=== PATIENT | male | born 1945 | race Caucasian/White ===

== ENCOUNTER 2017-07-12 12:42 | Inpatient (IN) ==
[2017-07-12] MEDS ORDERED: *HR* Heparin 5,000 UNIT/ML VIAL IVP PRN ×2 (19:30)
[2017-07-12] MEDS ORDERED: Heparin 25,000 UNIT/500 ML D5W 25,000 UNIT/500 ML BAG IVC SCH (19:30)
[2017-07-12] MEDS ORDERED: Ondansetron 4 MG/2 ML VIAL IVP PRN (20:05)
[2017-07-12] MEDS ORDERED: *HR* Morphine 2 MG/ML SYRINGE IVP PRN ×2 (20:05→20:10)
[2017-07-12] MEDS ORDERED: Naloxone 0.4 MG/ML INJ IVP PRN (20:05)
[2017-07-12] MEDS ORDERED: Acetaminophen 325 MG TABLET PO PRN (20:10)
[2017-07-12] MEDS ORDERED: Ipratropium/Albuterol Neb 3 ML IH PRN (20:10)
[2017-07-12] MEDS ORDERED: *HR* Dextrose 50 % in Water (Syg) 50 ML SYRINGE IVP PRN (20:12)
[2017-07-12] MEDS ORDERED: *HR* HYDROcodone/Acet 10/325 mg TABLET PO PRN (20:12)
[2017-07-12] MEDS ORDERED: D5% in Water 1,000 ML IVC PRN (20:12)
[2017-07-12] MEDS ORDERED: Dextrose Gel 15 GM/37.5 ML TUBE PO PRN ×2 (20:12)
--- NOTE | 2017-07-12 20:17 | Internal Med History&Physical ---
Date of Encounter: 07/12/17 Time of Encounter: 20:14 Assessment and Plan (1) NSTEMI (non-ST elevated myocardial infarction) Current visit: No Status: Acute Aspirin, metoprolol, Lipitor, nitroglycerin paste Morphine as needed Telemetry, monitor troponins, echocardiogram Lipid panel Cardiology consult, nothing by mouth after midnight for cardiac catheterization Heparin drip Omeprazole for GI prophylaxis and heparin drip for DVT prophylaxis. The patient will be admitted as inpatient, expected to stay more than 2 midnights. Full code. Time spent on this admission 40 minutes. (2) Accelerated hypertension Current visit: Yes Status: Acute Continue amlodipine, increase dose of losartan to 50 mg daily. 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 transplanted heart: [place] heart Associated angina: with unspecified angina Qualified Code(s): I25.119 - Atherosclerotic heart disease of [place] coronary artery with unspecified angina pectoris Internal Medicine - H&P: HPI Chief complaint: Chest pain Admitted From: Emergency Dept History of present illness: Mr. Cavanaugh is a 72 year old male transferred from [place], with a past medical history of CAD status post stents, diabetes type 2 insulin-dependent, hypertension, hyperlipidemia, started complaining of chest pressure, midsternal about 4 days ago since Sunday. Got worse earlier today at 2 PM and lasted for an hour and a half with no radiation 8 out of 10 in intensity that improved with nitroglycerin. Patient went to the ER and his troponin was 0.8, chest x- ray was unremarkable, hemoglobin 18.5 hematocrit 51.6 INR was 1 aPTT 47.7 glucose 339 sodium 132 chloride 96 calcium 11. Cardiology was consulted by the ER, Dr. Beverly recommended admission and to start heparin drip. The patient's blood pressure has been very elevated at 209/93. Denies any other complaints Past Med Surg Social Fam HX - Past Medical History Medical history: asthma, cancer (Prostate cancer, has seeds implanted), coronary artery disease (Status post stents), diabetes (Insulin-dependent), hyperlipidemia, hypertension, myocardial infarction, other (Abnormal stress test in 2016, depression, chronically elevated troponins, asthma) Psychiatric history: no psych history - Past Surgical History Surgical History: angioplasty/stent (Drug-eluting stent in the mid RCA in October 2015), other (Prostate seeds, echocardiogram from 2016 shows an ejection fraction of 60%) - Social History Smoking Status: Former smoker Smokeless Tobacco Status: No Alcohol use: none Drug use: none - Family History Father Living Status: Hx Family Cardiac Disorders: Yes ([place], HTN) Hx Family Respiratory Disorders: Yes (COPD) Hx Family Cancer: No Hx Family GI Disorders: No Hx Family Endocrine Disorder: No Hx Family Neuromuscular Disorders: No Hx Family Neurologic Disorders: No Hx Family HEENT Disorders: No Hx Family Autoimmune Disorders: No Mother Living Status: Hx Family Cardiac Disorders: Yes (Atherosclerosis) Hx Family Respiratory Disorders: No Hx Family Cancer: No Hx Family GI Disorders: No Hx Family Endocrine Disorder: Yes (DM) Hx Family Neuromuscular Disorders: No Hx Family Neurologic Disorders: No Hx Family HEENT Disorders: No Hx Family Autoimmune Disorders: No - Additional Family History Additional family history: Father with myocardial infarction, hypertension, COPD. Mother with diabetes and atherosclerosis Internal Medicine - H&P: Meds glipiZIDE [Glipizide] 10 mg PO DAILY 10/17/15 [History] Aspirin 81 mg PO DAILY 30 Days tab.chew 10/19/15 [Rx] Atorvastatin [Lipitor] 40 mg PO HS 30 Days tablet 10/19/15 [Rx] Metoprolol [Lopressor] 25 mg PO BID 30 Days tablet 10/19/15 [Rx] Isosorbide MONOnitrate (24 HR) [Imdur] 60 mg PO DAILY 30 Days tab.er.24h [Rx] FLUoxetine HCl [Fluoxetine HCl] 10 mg PO DAILY 07/12/17 [History] Insulin Glargine,Hum.rec.anlog [Toujeo Solostar] 75 units SQ DAILY 07/12/17 [ History] Losartan [Cozaar] 25 mg PO DAILY 07/12/17 [History] Metformin HCl [Fortamet] 850 mg PO BID 07/12/17 [History] Montelukast [Singulair] 10 mg PO DAILY 07/12/17 [History] Damar 10-325 mg 07/12/17 [History] amLODIPine [Norvasc] 5 mg PO BID 07/12/17 [History] 3 Allergy/AdvReac Type Severity Reaction Status Date / Time No Known Allergies Allergy Verified 07/12/17 10:23 All Systems PM: A 10-system review of systems was performed and is negative for pertinent findings except as documented above in the HPI. Review of systems: No chest pain at the moment, other systems out of the 10 reviewed were negative - Constitutional Vitals: Temp Pulse Resp BP 98.1 F 56 17 175/68 07/12/17 17:19 07/12/17 17:19 07/12/17 17:19 07/12/17 18:27 General appearance: Present: A&O X 3, morbidly obese - Head Head exam: Present: atraumatic, normocephalic - Eye Eye exam: Present: PERRL, conjuntiva pink, sclera anicteric Pupils: Present: PERRL - Neck Neck exam general surgery: Present: supple, trachea midline. Absent: lymphadenopathy - Respiratory Respiratory exam: Present: CTAB. Absent: accessory muscle use, rales, rhonchi, wheezes - Cardiovascular Cardiovascular exam: Present: RRR, +S1, +S2. Absent: diastolic murmur, gallop, rubs, systolic murmur - GI/Abdominal GI/Abdominal exam: Present: normal bowel sounds, soft, no peritoneal signs. Absent: distended, tenderness - Extremities Exam Extremities exam: Present: warm, radial pulses palpable and symmetrical. Absent : calf tenderness, cyanotic, pedal edema - Neurological Exam Neurological exam: Present: CN II-XII intact, oriented X3, no focal deficits. Absent: pronater drift, facial droop, speech deficit - Skin Skin exam: Present: dry, intact Internal Med - H&P Results - Labs Labs: EKG shows sinus bradycardia, no other ischemic findings
[2017-07-12 20:44] LABS: INR 1.1; Prothrombin Time 11.3 Seconds (9.4-12.1)
[2017-07-12 20:47] LABS: Activated Partial Thrombo Time 47.9 Seconds (26.0-36.0)
[2017-07-12 21:08] LABS: Hematocrit 46.5 % (37.5-50.1); Hemoglobin 16.3 g/dL (12.9-16.9); Immature Platelets 4.4 % (1.1-6.1); Mean Corpuscular HGB Conc 35.1 g/dL (31.6-35.5); Mean Corpuscular Volume 82.6 fL (83.0-100.0); Mean Platelet Volume 10.5 fL (9.4-12.4); Red Blood Count 5.63 M/mcL (4.19-5.50); Red Cell Distribution Width 12.4 % (11.5-14.5)
[2017-07-12] MEDS: 0.9 % Sodium Chloride 1,000 ML IVC SCH (22:04)
[2017-07-12] MEDS: amLODIPine 5 MG TABLET PO SCH (22:05)
[2017-07-12] MEDS: Nitroglycerin 1 INCH/GM PACKET TP SCH (22:06)
[2017-07-12] MEDS: Insulin LISPRO 300 UNITS/3 ML VIAL SQ SCH ×2 (22:06→22:11)
[2017-07-13 03:07] LABS: Hematocrit 44.9 % (37.5-50.1); Hemoglobin 15.6 g/dL (12.9-16.9); Mean Corpuscular HGB Conc 34.7 g/dL (31.6-35.5); Mean Corpuscular Hemoglobin 29.4 pg (28.0-33.3); Mean Corpuscular Volume 84.6 fL (83.0-100.0); Mean Platelet Volume 10.4 fL (9.4-12.4); Platelet Count 210 K/mcL (140-400); Red Blood Count 5.31 M/mcL (4.19-5.50); Red Cell Distribution Width 12.5 % (11.5-14.5)
[2017-07-13 03:24] LABS: BUN/Creatinine Ratio 15 (6-26); Blood Urea Nitrogen 13 mg/dL (8-23); Calcium 8.9 mg/dL (8.6-10.3); Carbon Dioxide 27 mEq/L (23-29); Chloride 99 mEq/L (98-107); Chol/HDL Ratio 5.1 (0-4.9); Cholesterol 189 mg/dL (< 200); Glucose 314 mg/dL (70-105); HDL Cholesterol 37 mg/dL (40-59); LDL Cholesterol,Calculated 114 mg/dL (0-99); Osmolality,Calculated 288 (280-300); Potassium 3.7 mEq/L (3.5-5.1); Sodium 133 mEq/L (136-145); Triglycerides 191 mg/dL (< 150); eGFR For African Americans > 60 (> 60); eGFR For Non-African Americans > 60 (> 60)
[2017-07-13 04:24] LABS: Hemoglobin A1C 9.4 %
[2017-07-13] MEDS: Nitroglycerin 1 INCH/GM PACKET TP SCH ×2 (05:58→18:04)
[2017-07-13] MEDS ORDERED: Perflutren Lipid Microsphere 1.3 ML in 0.9 % Sodium Chloride 8.7 ML IVP ONE (07:10)
[2017-07-13] MEDS: amLODIPine 5 MG TABLET PO SCH (08:37)
[2017-07-13] MEDS: Isosorbide MONOnitrate (24 HR) 60 MG TAB.ER.24H PO SCH (08:37)
[2017-07-13] MEDS: Insulin LISPRO 300 UNITS/3 ML VIAL SQ SCH ×4 (08:38→22:27)
[2017-07-13] MEDS: FLUoxetine HCl 10 MG CAPSULE PO SCH (08:38)
--- NOTE | 2017-07-13 08:38 | Pre-Sedation Evaluation ---
Pre-sedation evaluation - Pre-sedation checklist Date of procedure: 07/13/17 Procedure: Left Heart Cath Recent Vitals: Last Vital Signs Temp 97.9 F 07/13/17 04:21 Pulse 55 07/13/17 04:21 Resp 17 07/13/17 04:21 BP 148/77 07/13/17 04:21 Pulse Ox 94 07/13/17 04:21 H&P (including ROS) documented in medical record: Yes Previous reaction to sedatives/anesthetics: No Dietary Status: NPO after Midnight Dentition: No loose teeth or bridges ASA Classification *see protocol: CLASS II-Mild systemic disease Plan of Care: Pt appropriate candidate for procedure/moderate/conscious sedation , Risks/benefits of procedure/sedation discussed w/ patient/family
--- NOTE | 2017-07-13 08:39 | Cardiology Consult Note ---
<Iona Richards - Last Filed: 07/13/17 08:43> Date of Encounter: 07/13/17 Time of Encounter: 08:20 Assessment and Plan (1) NSTEMI (non-ST elevated myocardial infarction) Current Visit: Yes Status: Acute Peak troponin 3.03 with downward trend. Intermittent typical chest pain symptoms since Sunday. No acute ischemic ECG changes noted. Pain free upon exam. Known hx of obstructive CAD, last PCI 2015 (RCA, PLB). Continue heparin gtt, decrease ASA to 81 mg daily. Continue statin, betablocker , nitrates, and ARB. Check 2-D echocardiogram. Recommend LHC with possible PCI; alternatives risks, and benefits discussed. He is agreeable to proceed. Keep NPO except medications. Further recommendations to follow. (2) Chest pain Current Visit: Yes Status: Acute Plan as stated above. Qualifiers: Chest pain type: chest pain due to myocardial ischemia Ischemic chest pain type: unstable angina pectoris Qualified Code(s): I20.0 - Unstable angina (3) Coronary artery disease Current Visit: Yes Status: Acute Hx of CAD s/p PCI in 2002 and 2015. Plan as above. Asa, statin, BB Qualifiers: Coronary Disease-Associated Artery/Lesion type: [place] artery [place] vs. transplanted heart: [place] heart Associated angina: with unstable angina Qualified Code(s): I25.110 - Atherosclerotic heart disease of [place] coronary artery with unstable angina pectoris (4) Essential hypertension Current Visit: Yes Status: Chronic Poorly controlled as outpatient, initial SBP >200. Continue to monitor and adjust antihypertensives as necessary as inpt Discussion w patient/family: The assessment and plan as outlined above was discussed with the patient and/or family members who expressed understanding and agreement. All questions were answered. Thank you for involving us in the care of your patient. Please call with any questions. The patient was discussed and reviewed with interventional Cardiology, Dr. Benavidez. The patient will be discussed and reviewed with Dr. Beverly, changes to be made accordingly. History of Present Illness Consult date: 07/13/17 Requesting physician: Donnie Leung Consult reason: NSTEMI Chief complaint: Chest pain History of present illness: Mr. Cavanaugh is a 72 year old male with PMHx significant for CAD s/p PCI (2002, 2015), HTN, HLD, DMII, COPD, and hx of prostate cancer who presented to the ED with complaints of intermittent chest discomfort that started on Sunday. He reports symptoms started when walking up the stairs at work. Chest discomfort described as midsternal chest pressure and burning associated with neck fullness. Symptoms improved with rest and SL NTG tabs. Reports symptoms returned on Sunday evening--occurred at rest. Upon arrival to the ED initial troponin was 0.8. Peak troponin 3.03. He is pain free upon exam. No significant ECG changes noted. Prior CV testing: TTE 10/17/15: LVEF 60%. No significant valvular dysfunction LHC 10/18/15: EF 50%, successful PTCA/ANNA MARIE to mRCA and proximal PLB; otherwise moderate non-obstructive CAD (60% LAD and 60% dOM) 2-day nuclear exercise 11/10/15: small, mild-moderate reversible perfusion defect involving the basal inferior wall and basal inferoseptum. Past Med Surg Social Fam HX - Past Medical History Attestation: Yes The following information was validated with the patient. Source: patient Medical history: asthma, cancer (Prostate cancer, has seeds implanted), coronary artery disease (Status post stents), diabetes (Insulin-dependent), hyperlipidemia, hypertension, myocardial infarction, other (Abnormal stress test in 2016, depression, chronically elevated troponins, asthma) Psychiatric history: no psych history - Past Surgical History Surgical History: angioplasty/stent (Drug-eluting stent in the mid RCA in October 2015), other (Prostate seeds, echocardiogram from 2016 shows an ejection fraction of 60%) - Social History Smoking Status: Former smoker Smokeless Tobacco Status: No Alcohol use: none Drug use: none - Family History Father Living Status: Hx Family Cardiac Disorders: Yes ([place], HTN) Hx Family Respiratory Disorders: Yes (COPD) Hx Family Cancer: No Hx Family GI Disorders: No Hx Family Endocrine Disorder: No Hx Family Neuromuscular Disorders: No Hx Family Neurologic Disorders: No Hx Family HEENT Disorders: No Hx Family Autoimmune Disorders: No Mother Living Status: Hx Family Cardiac Disorders: Yes (Atherosclerosis) Hx Family Respiratory Disorders: No Hx Family Cancer: No Hx Family GI Disorders: No Hx Family Endocrine Disorder: Yes (DM) Hx Family Neuromuscular Disorders: No Hx Family Neurologic Disorders: No Hx Family HEENT Disorders: No Hx Family Autoimmune Disorders: No Medications and Allergies glipiZIDE [Glipizide] 10 mg PO DAILY 04/17/16 [History] Aspirin 81 mg PO DAILY 30 Days tab.chew 10/19/15 [Rx] Atorvastatin [Lipitor] 40 mg PO HS 30 Days tablet 10/19/15 [Rx] Metoprolol [Lopressor] 25 mg PO BID 30 Days tablet 10/19/15 [Rx] Isosorbide MONOnitrate (24 HR) [Imdur] 60 mg PO DAILY 30 Days tab.er.24h [Rx] FLUoxetine HCl [Fluoxetine HCl] 10 mg PO DAILY 07/12/17 [History] HYDROcodone/Acet 7.5/325 mg [Boelus 7.5-325 mg] 1 tab PO TID PRN 07/12/17 [ History] Insulin Glargine,Hum.rec.anlog [Toujeo Solostar] 75 units SQ DAILY 07/12/17 [ History] Losartan [Cozaar] 25 mg PO BID 07/12/17 [History] Metformin HCl [Fortamet] 850 mg PO BID 07/12/17 [History] Montelukast [Singulair] 10 mg PO DAILY 07/12/17 [History] amLODIPine [Norvasc] 5 mg PO DAILY 07/12/17 [History] 3 Allergy/AdvReac Type Severity Reaction Status Date / Time No Known Allergies Allergy Verified 07/12/17 10:23 All Systems Review: A 10-system review of systems was performed and is negative for pertinent findings except as documented above in the HPI. - Cardiovascular Cardiovascular: as per HPI Physical Examination General: Conversant, No Apparent Distress, Other (obese) HEENT: Atraumatic, Normocephaly, Mucus Membranes Moist Cardiac: Reg Rate and Rhythm, Normal S1 and S2 Lungs: Normal Breath Sounds Neuro: Alert and responsive Abdomen: Soft Skin: No rashes noted on visualized skin Musculoskeletal: No Chest Wall Tenderness Extremities: No Edema, Normal Pulses Results 07/13/17 02:54 07/13/17 02:54 Lab Results 07/12/17 07/12/17 07/12/17 18:45 20:18 20:18 WBC Hgb Hct Plt Count INR 1.1 APTT 47.7 H 47.9 H Sodium Potassium Chloride Carbon Dioxide BUN Creatinine Glucose Calcium Troponin I 3.03 H* 07/12/17 07/13/17 07/13/17 20:45 02:54 02:54 WBC 10.5 9.7 Hgb 16.3 D 15.6 Hct 46.5 44.9 Plt Count 207 210 INR APTT Sodium Potassium Chloride Carbon Dioxide BUN Creatinine Glucose Calcium Troponin I 2.35 H* 07/13/17 07/13/17 02:54 02:54 WBC Hgb Hct Plt Count INR APTT 50.2 H Sodium 133 L Potassium 3.7 Chloride 99 Carbon Dioxide 27 BUN 13 Creatinine 0.87 Glucose 314 H Calcium 8.9 Troponin I Active Medications Acetaminophen (Tylenol) 650 mg PO Q4HR PRN PRN Reason: fever and mild pain Stop: 01/11/18 20:11 Hydrocodone Bitart/Acetaminophen (Boelus 10-325 Mg) 1 each PO Q6H PRN PRN Reason: moderate pain Stop: 01/11/18 20:13 Albuterol/Ipratropium (Duoneb) 3 ml IH [id number] PRN; Protocol PRN Reason: Shortness Of Breath/Wheezing Stop: 01/11/18 20:11 Amlodipine Besylate (Norvasc) 10 mg PO DAILY ALFREDO PRN Reason: Protocol Stop: 01/11/18 20:16 Last Admin: 07/13/17 08:37 Dose: 10 mg Aspirin (Aspirin) 81 mg PO DAILY ALFREDO Stop: 01/12/18 09:01 Atorvastatin Calcium (Lipitor) 80 mg PO HS [facility] Stop: 01/11/18 21:01 Last Admin: 07/12/17 22:05 Dose: 80 mg Dextrose/Water (Dextrose 50% (Syg)) 25 ml IVP AD PRN PRN Reason: Hypoglycemia Stop: 01/11/18 20:13 Fluoxetine HCl (Prozac) 10 mg PO DAILY ALFREDO Stop: 01/12/18 09:01 Last Admin: 07/13/17 08:38 Dose: 10 mg Glucagon (Glucagen) 1 mg IM ONCE PRN PRN Reason: Hypoglycemia Stop: 01/11/18 20:13 Glucose (Gluctose) 15 gm PO ONCE PRN PRN Reason: Hypoglycemia Stop: 01/11/18 20:13 Glucose (Gluctose) 30 gm PO ONCE PRN PRN Reason: Hypoglycemia Stop: 01/11/18 20:13 Heparin Sodium (Porcine) (Heparin) 4,000 unit IVP Q6HR PRN PRN Reason: SEE COMMENTS Stop: 01/11/18 19:31 Heparin Sodium (Porcine) (Heparin) 2,000 unit IVP Q6H PRN PRN Reason: SEE COMMENTS Stop: 01/11/18 19:31 Last Admin: 07/13/17 04:17 Dose: 2,000 unit Hydralazine HCl (Hydralazine) 20 mg IVP Q6HR PRN PRN Reason: Hypertension Stop: 01/11/18 20:11 Heparin Sodium/Dextrose (Heparin 25,000 Unit/500 Ml D5w) 25,000 unit in 500 mls @ 19.903 mls/hr IVC .Q24H ALFREDO; 7.1 UNIT/KG/HR PRN Reason: Protocol Stop: 01/11/18 19:31 Last Titration: 07/13/17 04:20 Dose: 8.88 unit/kg/hr, 24.9 mls/hr Sodium Chloride (0.9 % Sodium Chloride) 1,000 mls @ 60 mls/hr IVC .[id number] [facility] Stop: 07/14/17 05:34 Last Admin: 07/12/17 22:04 Dose: 60 mls/hr Dextrose (Dextrose 5%) 1,000 mls @ 100 mls/hr IVC .Q10H PRN PRN Reason: HYPOGLYCEMIA Stop: 01/11/18 20:13 Insulin Human Lispro (Humalog) 0 units SQ TIDAC [facility] PRN Reason: Protocol Stop: 01/11/18 20:16 Last Admin: 07/13/17 08:38 Dose: 12 units Insulin Human Lispro (Humalog) 0 units SQ HS [facility] PRN Reason: Protocol Stop: 01/11/18 21:01 Last Admin: 07/12/17 22:11 Dose: 6 units Isosorbide Mononitrate (Imdur) 60 mg PO DAILY [facility] Stop: 01/12/18 09:01 Last Admin: 07/13/17 08:37 Dose: 60 mg Losartan Potassium (Cozaar) 50 mg PO DAILY ALFREDO PRN Reason: Protocol Stop: 01/11/18 20:16 Last Admin: 07/13/17 08:37 Dose: 50 mg Metoprolol Tartrate (Lopressor) 25 mg PO BID [facility] Stop: 01/11/18 21:01 Last Admin: 07/13/17 08:37 Dose: 25 mg Montelukast Sodium (Singulair) 10 mg PO QPM [facility] Stop: 01/12/18 18:01 Morphine Sulfate (Morphine Sulfate) 4 mg IVP Q3H PRN PRN Reason: Severe Pain (7-10) Stop: 01/11/18 20:06 Morphine Sulfate (Morphine Sulfate) 2 mg IVP Q3H PRN PRN Reason: moderate pain Stop: 01/11/18 20:11 Naloxone HCl (Narcan) 0.4 mg IVP Q2MIN PRN PRN Reason: Opioid Reversal Stop: 01/11/18 20:06 Nitroglycerin (Nitroglycerin) 1 inch TP Q6HNTG [facility] Stop: 01/11/18 20:16 Last Admin: 07/13/17 05:58 Dose: 1 inch Omeprazole (Prilosec) 40 mg PO DAILY@0630 [facility] PRN Reason: Protocol Stop: 01/12/18 06:31 Last Admin: 07/13/17 05:58 Dose: 40 mg Ondansetron HCl (Zofran) 4 mg IVP Q8HR PRN PRN Reason: Nausea And Vomiting Stop: 01/11/18 20:06 - Imaging and Cardiology Stress Test: report reviewed Echo: report reviewed Cardiac cath: report reviewed Other Results: 12 hour tele: avg HR=66 SR. No significant event noted. - EKG Interpretation EKG results cardiology: personally reviewed Consult Discharge Plan - Plan Referrals: Gurinder Méndez, MANAGER PAID [Primary Care Provider] - <Rory Beverly - Last Filed: 07/13/17 19:29> Date of Encounter: 07/13/17 - Attending Attestation I have personally performed a face to face evaluation on this patient. I have reviewed and agree with the care plan. History and Exam by me shows: 72 YOm with recent PCI to RCA in 2016 presents with typical angina troponin of 3.[address] changes NSTEMI troponin 3.03 Plan [facility] Assessment and Plan Discussion w patient/family: The assessment and plan as outlined above was discussed with the patient and/or family members who expressed understanding and agreement. All questions were answered. Thank you for involving us in the care of your patient. Please call with any questions. History of Present Illness History of present illness: Mr. Cavanaugh is a 72 year old male All Systems Review: A 10-system review of systems was performed and is negative for pertinent findings except as documented above in the HPI. Physical Examination Vital Signs, Last 4 Hours Temp Pulse Resp BP Pulse Ox 07/13/17 16:46 97.2 F L 75 16 125/82 96 Results 07/13/17 02:54 07/13/17 02:54 Lab Results 07/12/17 07/12/17 07/12/17 20:18 20:18 20:45 WBC 10.5 Hgb 16.3 D Hct 46.5 Plt Count 207 INR 1.1 APTT 47.9 H Sodium Potassium Chloride Carbon Dioxide BUN Creatinine Glucose Calcium Troponin I 3.03 H* 07/13/17 07/13/17 07/13/17 02:54 02:54 02:54 WBC 9.7 Hgb 15.6 Hct 44.9 Plt Count 210 INR APTT Sodium 133 L Potassium 3.7 Chloride 99 Carbon Dioxide 27 BUN 13 Creatinine 0.87 Glucose 314 H Calcium 8.9 Troponin I 2.35 H* 07/13/17 07/13/17 07/13/17 02:54 09:31 11:04 WBC Hgb Hct Plt Count INR APTT 50.2 H 71.0 H Sodium Potassium Chloride Carbon Dioxide BUN Creatinine Glucose Calcium Troponin I 1.58 H*
[2017-07-13] MEDS ORDERED: Aspirin 81 MG TAB.CHEW PO SCH (09:00)
[2017-07-13] MEDS ORDERED: 0.9 % Sodium Chloride 1,000 ML ONE ×2 (11:59→12:25)
[2017-07-13] MEDS ORDERED: *HR* Heparin 10,000 UNIT/10 ML VIAL ONE (11:59)
[2017-07-13] MEDS ORDERED: Verapamil 5 MG/2 ML VIAL ONE (11:59)
[2017-07-13] MEDS ORDERED: Heparin 1,000 UNITS/500 mL 500 ML ONE (11:59)
[2017-07-13] MEDS ORDERED: Nitroglycerin 1,000 MCG/10 ML VIAL IV ONE (12:00)
[2017-07-13] MEDS ORDERED: *HR* Midazolam HCl 5 MG/5 ML VIAL IVP ONE (12:22)
[2017-07-13] MEDS ORDERED: *HR* FentaNYL (PF) 100 MCG/2 ML VIAL ONE (12:23)
[2017-07-13] MEDS ORDERED: Tirofiban 12.5 MG/250ML 12.5 MG/250 ML BAG ONE (13:07)
[2017-07-13] MEDS ORDERED: *HR* Ticagrelor 90 MG TABLET ONE (13:39)
[2017-07-13] MEDS ORDERED: Tirofiban 12.5 MG/250ML 12.5 MG/250 ML BAG IVC SCH (14:00)
--- NOTE | 2017-07-13 14:15 | Invasive Diagnostic Lab Proc ---
Name: Milton Cavanaugh Date of Study: 07/13/2017 Date: 1945 Ht: 64.2in Medical Record#: [id number] Age: 72 Wt: 308.65lb Gender: Male BSA: 2.36 Order #: [id number] BMI: 52.69 Physicians Procedure Physician: Josue Benavidez MD, [facility] Referring MD: Referring MD: Staff Name Position Time In Gladys Doe RN Monitor 12:32 PM Shaniqua Stevenson RT Scrub 12:32 PM Jonathan Betancourt RN Long Winder Tender 12:32 PM Indications Indication Non-Stemi Procedures Performed Procedure L HRT ARTERY/VENTRICLE ANGIO PRQ CARD ANNA MARIE STENT W/ANGIO 1 VSL PRQ CARD ANNA MARIE STENT W/ANGIO 1 VSL Pre-Procedure Checklist Informed consent is complete signed and on chart. H&P is on chart. ID band is on and ID verified with patient. Patient NPO for procedure The procedure was described for the patient and questions were answered. Blood Pressure: 149/87 ECG is on chart. Rhythm: NSR Plan of Care Patient will tolerate the procedure without complications. Adequate level of comfort will be maintained. Hemodynamics will remain stable Patient will recover from procedure without complications. Respiratory function will be maintained. Cardiac rhythm will remain stable. Patient temperature will be maintained. Patient and/or family have verbalized understanding of the procedure. Patient Education Chief Complaint/Reason for Test: Cardiac Cath Developmental Category: Geriatric (65+ years) Developmentally Appropriate for Age: Yes Learning Barriers: None Education Needs: Procedure Education Method: Verbal Information Taught: Cardiac Cath Educational Evaluation: Able to repeat information Intravenous Access Time IV Size Location DC'd Fluid/Drip Rate Units RN 11:58 AM 18g 1 /" Patent On Arrival Lt Antecubital 0.9NaCl 25 ml/hr Jonathan Betancourt RN Allergies No Known Allergies NKA Vital Signs Time BP (mmHg) HR (bpm) O2 Sat. RR (bpm) LOC 12:05 PM 159 / 77 60 93 % 17 5 = Fully awake and oriented or at pre-proc level 12:36 PM / % 5 = Fully awake and oriented or at pre-proc level 12:38 PM / % 4 = Oriented but drowsy 12:38 PM / % 4 = Oriented but drowsy 12:53 PM / % 5 = Fully awake and oriented or at pre-proc level 01:09 PM / % 4 = Oriented but drowsy 01:24 PM / % 5 = Fully awake and oriented or at pre-proc level 12:25 PM 150 / 88 61 93 % 20 12:30 PM 149 / 87 60 96 % 18 12:35 PM 127 / 66 59 95 % 19 12:40 PM 133 / 64 61 95 % 16 12:45 PM 126 / 66 55 95 % 21 12:50 PM 101 / 48 54 94 % 17 12:55 PM 111 / 61 53 95 % 19 01:00 PM 124 / 59 53 96 % 19 01:05 PM 129 / 66 61 95 % 23 01:10 PM 141 / 65 71 96 % 19 01:15 PM 144 / 79 67 96 % 22 01:21 PM 132 / 34 67 97 % 20 01:25 PM 146 / 80 65 97 % 33 01:31 PM 138 / 70 65 97 % 26 01:36 PM 151 / 75 67 98 % 29 01:41 PM 131 / 58 69 96 % 25 01:46 PM 129 / 60 50 97 % 23 01:39 PM / % 5 = Fully awake and oriented or at pre-proc level Procedural Medications Time Medication Dose Units Method Given By 12:34 PM Oxygen 2 L/min nasal cannula Jonathan Betancourt RN 12:34 PM Versed 2 mg Intravenous Jonathan Betancourt RN 12:36 PM Fentanyl 50 mcg Intravenous Jonathan Betancourt RN 12:46 PM Lidocaine 2% 0.5 ml Subcutaneous Josue Benavidez MD, FACC 12:47 PM Heparin 2000 units Nitroglycerin 200 mcg Verapamil 2.5 mg Intraarterial Josue Benavidez MD, FACC 01:06 PM Heparin 3000 units Intravenous Jonathan Betancourt RN 01:08 PM Aggrastat Bolus: 71 ml Intravenous Jonathan Betancourt RN 01:09 PM Aggrastat 12.5mg/250ml 25.5 ml/hr Intravenous Jonathan Betancourt RN 01:46 PM Brilinta 180 mg Orally Jonathan Betancourt RN ASA Classification: CLASS II- Mild systemic disease (i.e. well-controlled diabetes, hypertension, asthma, cigarette smoking) Marcelo Score Preprocedure Postprocedure Activity 2- Moves 4 extremities sustained head lift Activity 2- Moves 4 extremities sustained head lift Circulation 2- SBP +/= 20 points of pre-anesthetic level Circulation 2- SBP +/= 20 points of pre-anesthetic level Consciousness 2- Awake and alert oriented x 3 Consciousness 2- Awake and alert oriented x 3 O2 Saturation 2- Able to maintain O2 satruation of 92% on room air O2 Saturation 2- Able to maintain O2 satruation of 92% on room air Respiratory 2- Able to deep breathe and cough well Respiratory 2- Able to deep breathe and cough well Total Score 10 Total Score 10 Contrast Agent: Isovue Diagnostic Contrast: 185 ml Total Contrast: 185 ml Fluoro Dose: 2089 mGy Activated Clotting Time Time Seconds to Clot 01:06 PM 231 Procedure Log Time Note Enter By 12:03 PM CathStat 12:25 PM Vitals capture started with the following parameters, Patient=Adult, Interval=5 min, Initial Nhwdqjro=261 mmHg, Deflation Rate=5 mmHg, Cuff placed on Left Arm 12:25 PM HR=61 bpm, FJRC=994/88 mmhg, SpO2=93.0 %, Resp=20 B/min, Comment=NSR 12:30 PM HR=60 bpm, AHDJ=220/87 mmhg, SpO2=96.0 %, Resp=18 B/min, Comment=NSR 12:31 PM Pt arrived to garden labourer 2 at 12:31 [email or web address] 12:32 PM Physician arrived 12:32 [email or web address] 12:32 PM ASA Class CLASS II- Mild systemic disease (i.e. well-controlled diabetes, hypertension, asthma, cigarette smoking) [email or web address] 12:32 PM Meet and greet completed [email or web address] 12:32 PM Sign in performed according to hospital policy. [email or web address] 12:32 PM Procedure start 12:32 kkner 12:32 PM Patient charges- Angio tray pack, Navilyst 3mm J, Pulse Oximetry and ACIST tubing and transducer kkallner 12:32 PM Gladys Doe RN Position: Monitor Time in: 12:32 [email or web address] 12:32 PM Shaniqua Stevenson RT Position: Scrub Time in: 12:32 [email or web address] 12:32 PM Jonathan Betancourt RN Position: Long Winder Tender Time in: 12:32 kkner 12:33 PM Case Delayed No [email or web address] 12:33 PM Hair removed from procedure site in procedure lab using clippers. Right wrist prepped with Chloraprep by Gladys Doe RN, safety strap applied then patient was draped. Skin intact. [email or web address] 12:33 PM Hair removed from procedure site in procedure lab using clippers. Right groin prepped with Chloraprep by Gladys Doe RN, safety strap applied then patient was draped. Skin intact. 12:34 PM Time: 12:34 Oxygen on at 2 L/min per nasal cannula by [facility] 12:34 PM Time: 12:34 Versed 2 mg Intravenous Given by Jonathan Betancourt RN [facility] 12:35 PM HR=59 bpm, CPSP=663/66 mmhg, SpO2=95.0 %, Resp=19 B/min, Comment=NSR 12:36 PM Time: 12:36 Fentanyl 50 mcg Intravenous Given by [facility]ourt RN [facility] 12:36 PM Time: 12:36 Patient comfortable and pain free: Yes [facility] :36 PM Time: 12:36LOC: 5 = Fully awake and oriented or at pre-proc level [facility] 12:36 PM Clinical Presentation: Non-STEMI [facility] 12:38 PM Time: 12:38 Patient comfortable and pain free: Yes [facility] 12:38 PM Time: 12:38LOC: 4 = Oriented but drowsy [facility] 12:40 PM HR=61 bpm, YNRD=921/64 mmhg, SpO2=95.0 %, Resp=16 B/min, Comment=NSR 12:42 PM Pressure channel 2 zeroed. 12:45 PM HR=55 bpm, YWUS=927/66 mmhg, SpO2=95.0 %, Resp=21 B/min, Comment=NSR 12:46 PM Time out performed according to hospital policy [facility] 12:46 PM Time: 12:46 0.5 ml Lidocaine 2% to right radial Subcutaneous Given by Josue Benavidez MD, FACC [facility] 12:46 PM Access obtained by percutaneous puncture. 6Fr 10cm Terumo Glidesheath sheath placed in right Radial artery. [id number] [facility] 12:47 PM Time: 12:47 Patient given 2,000 units Heparin, 200 mcg Nitroglycerin, and 2.5 mg Verapamil Intraarterial by Josue Benavidez MD, FACC. This is given to reduce risk of vessel spasm and thrombosis. [facility] 12:48 PM 5Fr TIG catheter inserted over the wire DNC lparsley 12:48 PM 0.035 260cm Navilyst 3mmJ wire [id number] lparsley 12:50 PM HR=54 bpm, QMJU=540/48 mmhg, SpO2=94.0 %, Resp=17 B/min, Comment=NSR 12:51 PM Catheter removed lparsley 12:52 PM 5Fr 3DRC catheter inserted over the wire [id number] lparsley 12:53 PM RCA angiography performed in multiple views. lparsley 12:53 PM Time: 12:38LOC: 4 = Oriented but drowsy l[facility]ley 12:53 PM Time: 12:38 Patient comfortable and pain free: Yes lparsley 12:54 PM Recorded Pressure: Ao, HR=56, Condition=Condition 1 (Aorta) Ao 87/61/73 12:55 PM HR=53 bpm, FSRW=953/61 mmhg, SpO2=95.0 %, Resp=19 B/min, Comment=NSR 12:56 PM Catheter removed lparsley 12:56 PM Coronary Dominance: right lparsley 12:57 PM Lesion found in Mid RCA. Pre Stenosis: 40 lparsley 12:57 PM Lesion found in Distal RCA. Pre Stenosis: 50 lparsley 12:58 PM 6Fr CLS 3.0 Runway guide catheter was used to cannulate the PCI vessel successfully. reused? No lparsley 12:59 PM LCA angiography performed in multiple views. lparsley 12:59 PM Recorded Pressure: Ao, HR=59, Condition=Condition 1 (Aorta) Ao 121/70/91 01:00 PM HR=53 bpm, GUEG=937/59 mmhg, SpO2=96.0 %, Resp=19 B/min, Comment=NSR 01:02 PM Lesion found in Mid LAD. Pre Stenosis: 70 lparsley 01:02 PM Lesion found in Distal LAD. Pre Stenosis: 40 lparsley 01:03 PM Lesion found in 2nd Marginal. Pre Stenosis: 99 Pre CLAIRE Flow: 2: Partial Flow/Perfusion (> 1 but < 3) lparsley 01:03 PM Lesion found in LAD SP. Pre Stenosis: 90 lparsley 01:04 PM Recorded Pressure: Ao, HR=69, Condition=Condition 1 (Aorta) Ao 135/74/101 01:05 PM PCI lesion in 2nd Marginal. lparsley 01:05 PM .014 Athalia 190cm guide wire across target lesion- successful. reused? No lparsley 01:05 PM Inflation device was opened. lparsley 01:05 PM HR=61 bpm, ZHUK=071/66 mmhg, SpO2=95.0 %, Resp=23 B/min, Comment=NSR 01:06 PM At 13:06 the ACT was 231 seconds. lparsley 01:06 PM Recorded Pressure: Ao, HR=65, Condition=Condition 1 (Aorta) Ao 130/75/99 01:07 PM Time: 13:06 Heparin 3000 units Intravenous Given by Jonathan Betancourt RN [email or web address] 01:07 PM 2.25 mm x 12 mm Emerge Monorail balloon across target lesion- successful. reused? No lparskevin :08 PM Time: 13:08 Aggrastat Bolus: 71 ml Intravenous Given by Jonathan Betancourt RN Blevins pump [email or web address] 01:08 PM Balloon inflated @ 10 pradip for 12 seconds lparsley :09 PM Time: 12:53LOC: 5 = Fully awake and oriented or at pre-proc level lparsley :09 PM Time: 13:09 Patient comfortable and pain free: Yes lparsley 01:10 PM Time: 13:09 Aggrastat 12.5mg/250ml 25.5 ml/hr Intravenous Given by Jonathan Betancourt RN Blevins pump lparsley 01:10 PM HR=71 bpm, XJVU=197/65 mmhg, SpO2=96.0 %, Resp=19 B/min, Comment=NSR 01:11 PM Balloon catheter removed intact. lparsley :11 PM 2.25mm x 16mm Synergy drug-eluting stent across target lesion- successful [id number] 01:12 PM Recorded Pressure: Ao, HR=72, Condition=Condition 1 (Aorta) Ao 129/79/103 01:13 PM Stent deployed @ 12 pradip for 22 seconds lparsley :14 PM Stent delivery system removed intact. lparsley :14 PM 2.5 mm x 6mm NC Trek Rx balloon across target lesion- successful. reused? No lparsley 01:14 PM Recorded Pressure: Ao, HR=73, Condition=Condition 1 (Aorta) Ao 144/82/109 01:15 PM HR=67 bpm, JNDI=769/79 mmhg, SpO2=96.0 %, Resp=22 B/min, Comment=NSR 01:16 PM Balloon inflated @ 16 pradip for 22 seconds lparsley 01:16 PM Recorded Pressure: Ao, HR=66, Condition=Condition 1 (Aorta) Ao 134/77/103 01:17 PM Balloon inflated @ 18 pradip for 16 seconds lparsley 01:18 PM Balloon catheter removed intact. lparsley 01:19 PM Wire repositioned to LAD lparsley 01:19 PM PCI lesion in Mid LAD. lparsley 01:21 PM HR=67 bpm, ZMQC=509/34 mmhg, SpO2=97.0 %, Resp=20 B/min, Comment=NSR 01:24 PM Time: 13:09LOC: 4 = Oriented but drowsy lparsley 01:24 PM Time: 13:09 Patient comfortable and pain free: Yes lparsley 01:25 PM 3.0mm x 24mm Synergy drug-eluting stent across target lesion- successful Lot #[id number] lparsley 01:25 PM Stent delivery system removed intact. Would not cross lparsley 01:25 PM HR=65 bpm, JDEM=765/80 mmhg, SpO2=97.0 %, Resp=33 B/min, Comment=NSR 01:26 PM 2.75 mm x 20 mm Emerge Monorail balloon across target lesion- successful. reused? No lparsley 01:27 PM Balloon inflated @ 12 pradip for 14 seconds lparsley 01:28 PM Balloon inflated @ 12 pradip for 16 seconds lparsley 01:28 PM Balloon catheter removed intact. lparsley 01:29 PM 3.0 x 24 Stent reinserted lparsley 01:31 PM HR=65 bpm, VSDL=184/70 mmhg, SpO2=97.0 %, Resp=26 B/min, Comment=NSR 01:31 PM Stent deployed @ 16 pradip for 26 seconds lparsley 01:32 PM Recorded Pressure: Ao, HR=70, Condition=Condition 1 (Aorta) Ao 169/-60/53 01:33 PM Stent delivery system removed intact. lparsley 01:34 PM 3.5 mm x 15mm NC Trek Rx balloon across target lesion- successful. reused? No lparsley 01:36 PM HR=67 bpm, RDOS=751/75 mmhg, SpO2=98.0 %, Resp=29 B/min, Comment=NSR :36 PM Balloon inflated @ 14 pradip for 18 seconds lparsley 01:36 PM Balloon inflated @ 14 pradip for 25 seconds [facility] PM [facility] intact. [facility]oon [facility] intact. [facility] PM Recorded Pressure: Ao, HR=67, Condition=Condition 1 (Aorta) Ao 133/69/95 01:39 PM Guide catheter removed intact. [facility] :39 PM Time: 13:24 Patient comfortable and pain free: Yes [facility] :39 PM Time: 13:24LOC: 5 = Fully awake and oriented or at pre-proc level [facility] PM 5Fr Pigtail catheter inserted over the wire DN [facility] :40 PM Catheter selectively placed in left ventricle [facility] 01:41 PM HR=69 bpm, AROQ=150/58 mmhg, SpO2=96.0 %, Resp=25 B/min 01:41 PM Recorded Pressure: LV, HR=69, Condition=Condition 1 (Left Ventricle) LV 128/7/15 01:42 PM Bolus angiogram of left Ventricle complete: 11 ml/sec for a total of 30 mls [facility] :43 PM Recorded Pressure: LV, Ao, HR=68, Condition=Condition 1 (Left Ventricle) LV 118/3/3, (Aorta) Ao 121/63/84 01:43 PM Catheter removed [facility] :46 PM HR=50 bpm, IGMO=493/60 mmhg, SpO2=97.0 %, Resp=23 B/min, Comment=NSR 01:46 PM Time: 13:46 Brilinta 180 mg Orally Given by Jonathan Betancourt RN [facility] 01:48 PM Procedure completed at 13:48 [facility] :49 PM Sign out completed: Radiation Dose 2089.37 mGy Fluoro Time: 17.6 Isovue 370 - 200ml contrast 185 ml given by Josue Benavidez MD, [facility]. Complications: NoneCardiac Rehab Consult needed: YesConfirmed administered medications: Yes [facility] :49 PM Isovue 370 - 200ml,1 Bottle(s) used. [facility] :49 PM Arterial sheath pulled, Vasc Band closure device used and was Successful S/N. [facility] :49 PM 9 ml air in Vasc Band. [facility] 01:49 PM Estimated Blood Loss: less than 20cc lparsley 01:49 PM Post ECG NSR lparsley 01:49 PM Post Blood Pressure 129/60 lparsley 01:49 PM 13:49 Post Pulses Rt Radial 2+ lparsley 01:50 PM Information taught Cardiac Cath, PCI, and Vasc Band [facility] 01:51 PM Education needs Procedure, Plan of Care, and Safe & Effective Use of Medications lparsley 01:51 PM Learning barriers :None [facility] :51 PM Education Methods Verbal [facility] 01:51 PM Education evaluation Able to repeat information [facility] 01:51 PM Site status No bleeding/hematoma - Rt Wrist as reported by Shaniqua Stevenson RT at 13:51 [email or web address] 01:54 PM Report given to Niecy MAZARIEGOS Pt taken to 2A Room #72. 13:52 lparsley 01:55 PM Time: 13:39LOC: 5 = Fully awake and oriented or at pre-proc level lparsley :55 PM Time: 13:39 Patient comfortable and pain free: Yes lparsley 01:57 PM Plavix, Effient or Brilinta given Yes lparsley 01:57 PM Delay to floor No lparsley 01:57 PM Patient out of room: 13:57 lparsley 01:58 PM Family placed in consult room. lparsley 01:58 PM Complications: None [facility] 01:58 PM Fluoro Time: 17.6 lparsley 01:58 PM Isovue 370 - 200ml contrast 185 ml given by Josue Benavidez MD, [facility]. lparsley 01:58 PM Radiation Dose 2089.37 mGy [facility] 02:04 PM Mid/Distal Left Anterior Descending Coronary Artery and diagonal branches with 70% stenosis. lparsley 02:05 PM Circumflex, Obtuse Marginal, Left Posterior Descending, and Left Posterolateral Coronary Arteries with 99 % stenosis. lparsley 02:05 PM Right Coronary, Right Posterior Descending Arteries with Right Posterolateral and Acute Marginal branches with 50 % stenosis. [facility] Complications Complication None Hemodynamics Pressures Site Systolic/A Wave Diastolic/V Wave Mean AO 87 61 73 AO 121 70 91 AO 135 74 101 AO 130 75 99 AO 129 79 103 AO 144 82 109 AO 134 77 103 AO 169 -60 53 AO 133 69 95 LV 128 7 15 LV 118 3 3 AO 121 63 84 Post Procedure Information Blood Pressure: 129/60 mmHg Rhythm: NSR Post procedural instructions were given Closure Device Time Device Success/Fail 07/13/2017 1:44:00 PM Mechanical Compression Successful Site Checks Time Location Status Staff Sheath In? Note 01:51 PM Rt Wrist No bleeding/hematoma Shaniqua Stevenson RT Pulses Time Site Pre-Procedure Post-Procedure Note 07/13/2017 11:58:00 AM Bilateral DP & PT 2+ 07/13/2017 11:59:00 AM Bilateral radial 2+ 1:49:00 PM Rt Radial 2+ Updated by Gladys Doe RN on 07/13/2017 2:06:31 PM electronically signed on 07/13/2017 2:07:18 PM with status of Final
--- NOTE | 2017-07-13 17:06 | Internal Med Progress Note ---
Date of Encounter: 07/13/17 Time of Encounter: 17:03 - Assessment and plan (1) NSTEMI (non-ST elevated myocardial infarction) Current Visit: Yes Status: Acute Assessment and plan: Status post cardiac catheterization with mid LAD drug-eluting stent and OM 2 ANNA MARIE Continue aspirin, Brilinta, metoprolol, atorvastatin, MetroLotion as needed May discharge in the morning if okay with cardiology Echocardiogram shows an ejection fraction of 60% with mild concentric left ventricular hypertrophy, mild diastolic dysfunction (2) Accelerated hypertension Current Visit: Yes Status: Acute Assessment and plan: Controlled on new dose of losartan 50 mrem daily, amlodipine Hydralazine IV as needed (3) Hyperlipidemia Current Visit: Yes Status: Acute Qualifiers: Hyperlipidemia type: pure hypercholesterolemia Qualified Code(s): E78.00 - Pure hypercholesterolemia, unspecified; E78.0 - Pure hypercholesterolemia (4) Type 2 diabetes mellitus Current Visit: No Status: Chronic Assessment and plan: Continue insulin sliding scale Qualifiers: Diabetes mellitus complication status: with hyperglycemia Diabetes mellitus detention insulin use: with detention use Qualified Code(s): E11.65 - Type 2 diabetes mellitus with hyperglycemia; Z79.4 - MCFP (current) use of insulin; Z79.4 - terminal block assembler (current) use of insulin; Z79.4 - terminal block assembler ( current) use of insulin; Z79.4 - terminal block assembler (current) use of insulin (5) Coronary artery disease Current Visit: Yes Status: Acute Qualifiers: Coronary Disease-Associated Artery/Lesion type: ch[place]oot artery [place] vs. transplanted heart: chilkoot heart Associated angina: with unstable angina Qualified Code(s): I25.110 - Atherosclerotic heart disease of chilkoot coronary artery with unstable angina pectoris - Subjective Interval history: Denies chest pain, no abdominal pain, no dysuria. Upper extremity does not appear to have any complications from cardiac catheterization/radial axis. No fevers or chills - Constitutional Vitals: Temp Pulse Resp BP Pulse Ox 97.2 F L 75 16 125/82 96 07/13/17 16:46 07/13/17 16:46 07/13/17 16:46 07/13/17 16:46 07/13/17 16:46 General appearance: Present: A&O X 3, morbidly obese - Head Head exam: Present: atraumatic, normocephalic - Eye Eye exam: Present: PERRL, conjuntiva pink, sclera anicteric Pupils: Present: PERRL - Neck Neck exam general surgery: Present: supple, trachea midline. Absent: lymphadenopathy - Respiratory Respiratory exam: Present: CTAB. Absent: accessory muscle use, rales, rhonchi, wheezes - Cardiovascular Cardiovascular exam: Present: RRR, +S1, +S2. Absent: diastolic murmur, gallop, rubs, systolic murmur - GI/Abdominal GI/Abdominal exam: Present: normal bowel sounds, soft, no peritoneal signs. Absent: distended, tenderness - Extremities Exam Extremities exam: Present: warm, radial pulses palpable and symmetrical. Absent : calf tenderness, cyanotic, pedal edema Additional comments: Right upper extremity/radial axis without signs of hematoma - Neurological Exam Neurological exam: Present: CN II-XII intact, oriented X3, no focal deficits. Absent: pronater drift, facial droop, speech deficit - Skin Skin exam: Present: dry, intact Internal Medicine: Result - Labs CBC & Chem 7: 07/13/17 02:54 07/13/17 02:54 Labs: Short CBC 07/12/17 07/13/17 Range/Units 20:45 02:54 WBC 10.5 9.7 (4.3-11.1) K/mcL Hgb 16.3 D 15.6 (12.9-16.9) g/dL Hct 46.5 44.9 (37.5-50.1) % Plt Count 207 210 (140-400) K/mcL BMP 07/13/17 02:54 Sodium 133 L Potassium 3.7 Chloride 99 Carbon Dioxide 27 BUN 13 Creatinine 0.87 Glucose 314 H Calcium 8.9 Cardiac Enzymes 07/12/17 07/13/17 07/13/17 Range/Units 20:18 02:54 09:31 Troponin I 3.03 H* 2.35 H* 1.58 H* (< 0.04) ng/mL - ABG Interpretation ABG results: PT/INR, D-dimer PT 11.3 Seconds (9.4-12.1) 07/12/17 20:18 - Impressions Impressions Echocardiogram 07/13/17 20:05 Impressions: LVEF 60%. Normal LV chamber size and function. Mild concentric left ventricular hypertrophy. Mild left ventricular diastolic dysfunction. Right ventricle was not well visualized. Grossly, it is normal function. Unable to estimate RVSP due to lack of TR jet. No obvious significant valvular dysfunction. Left Ventricular Wall Motion: Rest Echo Findings All wall segments showed normal motion. Findings: Study Quality * Technically adequate exam. ECG Findings * Normal sinus rhythm. Left Ventricle * LVEF 60%. * Normal LV chamber size and function. * Mild concentric left ventricular hypertrophy. * Mild left ventricular diastolic dysfunction. Right Ventricle * Right ventricle was not well visualized. Grossly, it is normal function. Left Atrium * Grossly, moderately dilated left atrium. Right Atrium * Right atrium is not well visualized. Interatrial Septum * Interatrial septum not well evaluated. Aortic Valve * Aortic valve not well visualized. * No aortic regurgitation. * No aortic stenosis. Mitral Valve * Normal mitral valve structure and function. * No mitral regurgitation. * No mitral stenosis. Tricuspid Valve * Tricuspid valve not well visualized. * No tricuspid regurgitation. * Unable to estimate RVSP due to lack of TR jet. Pulmonic Valve * Pulmonic valve is not well visualized. * No pulmonic regurgitation. Aorta * Normally sized aortic root. Pericardium * The pericardium appears normal. IVC * Normal IVC dimensions and inspiratory collapse. Pulmonary Artery * Normal visualized portions of the main pulmonary artery. Consult Discharge Plan - Plan Referrals: Gurinder Méndez CNP [Primary Care Provider] -
[2017-07-13] MEDS: Aspirin 81 MG TAB.CHEW PO SCH (18:04)
[2017-07-13] MEDS: 0.9 % Sodium Chloride 1,000 ML IVC SCH (18:16)
[2017-07-13] MEDS: *HR* Ticagrelor 90 MG TABLET PO SCH (20:43)
[2017-07-14] MEDS: Nitroglycerin 1 INCH/GM PACKET TP SCH (06:09)
[2017-07-14 08:12] VITALS: BP 159/74
[2017-07-14] MEDS: Isosorbide MONOnitrate (24 HR) 60 MG TAB.ER.24H PO SCH (08:24)
[2017-07-14] MEDS: Insulin LISPRO 300 UNITS/3 ML VIAL SQ SCH (08:24)
[2017-07-14] MEDS: *HR* Ticagrelor 90 MG TABLET PO SCH (08:24)
[2017-07-14] MEDS: Aspirin 81 MG TAB.CHEW PO SCH (08:24)
[2017-07-14] MEDS: FLUoxetine HCl 10 MG CAPSULE PO SCH (08:24)
[2017-07-14] MEDS: amLODIPine 5 MG TABLET PO SCH (08:25)
[2017-07-14] MEDS ORDERED: Insulin DETEMIR 100 UNIT/ML X5UNITS SQ SCH (09:00)
[2017-07-14 09:51] LABS: BUN/Creatinine Ratio 15 (6-26); Blood Urea Nitrogen 15 mg/dL (8-23); Calcium 8.5 mg/dL (8.6-10.3); Carbon Dioxide 24 mEq/L (23-29); Chloride 104 mEq/L (98-107); Glucose 337 mg/dL (70-105); Osmolality,Calculated 292 (280-300); Sodium 134 mEq/L (136-145); eGFR For African Americans > 60 (> 60); eGFR For Non-African Americans > 60 (> 60)
--- NOTE | 2017-07-14 09:54 | Discharge Summary ---
Date of Encounter: 07/14/17 Time of Encounter: 09:50 - Discharge Diagnosis (1) NSTEMI (non-ST elevated myocardial infarction) Priority: Primary Status: Acute Comments: Status post cardiac catheterization with mid LAD drug-eluting stent and OM 2 ANNA MARIE (2) Accelerated hypertension Priority: Secondary Status: Acute (3) Hyperlipidemia Priority: Secondary Status: Acute Qualifiers: Hyperlipidemia type: pure hypercholesterolemia Qualified Code(s): E78.00 - Pure hypercholesterolemia, unspecified; E78.0 - Pure hypercholesterolemia (4) Type 2 diabetes mellitus Priority: Secondary Status: Chronic Qualifiers: Diabetes mellitus complication status: with hyperglycemia Diabetes mellitus prison insulin use: with prison use Qualified Code(s): E11.65 - Type 2 diabetes mellitus with hyperglycemia; Z79.4 - intermediate (current) use of insulin; Z79.4 - intermediate (current) use of insulin; Z79.4 - termination clerk ( current) use of insulin; Z79.4 - intermediate (current) use of insulin (5) Coronary artery disease Priority: Secondary Status: Acute Qualifiers: Coronary Disease-Associated Artery/Lesion type: [place] artery [place] vs. transplanted heart: [place] heart Associated angina: with unstable angina Qualified Code(s): I25.110 - Atherosclerotic heart disease of [place] coronary artery with unstable angina pectoris - Discharge Medications Prescriptions: Atorvastatin [Lipitor] 80 mg PO HS #30 tablet Losartan [Cozaar] 50 mg PO BID #60 tablet Omeprazole [PriLOSEC] 40 mg PO DAILY@0630 #30 capsule. Ticagrelor [Brilinta] 90 mg PO BID #60 tablet Home Medications: glipiZIDE [Glipizide] 10 mg PO DAILY 10/17/15 [History] Aspirin 81 mg PO DAILY 30 Days tab.chew 10/19/15 [Rx] Atorvastatin [Lipitor] 40 mg PO HS 30 Days tablet 10/19/15 [Rx] Metoprolol [Lopressor] 25 mg PO BID 30 Days tablet 10/19/15 [Rx] Isosorbide MONOnitrate (24 HR) [Imdur] 60 mg PO DAILY 30 Days tab.er.24h [Rx] FLUoxetine HCl [Fluoxetine HCl] 10 mg PO DAILY 07/12/17 [History] HYDROcodone/Acet 7.5/325 mg [[place] 7.5-325 mg] 1 tab PO TID PRN 01/11/18 [ History] Insulin Glargine,Hum.rec.anlog [[place] Solostar] 75 units SQ DAILY 07/12/17 [ History] Metformin HCl [Fortamet] 850 mg PO BID 07/12/17 [History] Montelukast [Singulair] 10 mg PO DAILY 07/12/17 [History] amLODIPine [Norvasc] 5 mg PO DAILY 07/12/17 [History] Atorvastatin [Lipitor] 80 mg PO HS #30 tablet 07/14/17 [Rx] Losartan [Cozaar] 50 mg PO BID #60 tablet 07/14/17 [Rx] Omeprazole [PriLOSEC] 40 mg PO DAILY@0630 #30 capsule. 07/14/17 [Rx] Ticagrelor [Brilinta] 90 mg PO BID #60 tablet 07/14/17 [Rx] Allergies/Adverse Reactions: 3 Allergy/AdvReac Type Severity Reaction Status Date / Time No Known Allergies Allergy Verified 07/12/17 10:23 Procedures/tests Complete & Pending: Procedures Performed prior 72 hours Category Date Time Status CL Cardiac Catheterization [CL] Routine Analysis Engineer 07/13/17 08:40 Completed ECG 12 lead ECG [ECG] Routine Y 07/12/17 20:05 Ordered EV echocardiogram w enhance Routine Y 07/13/17 20:05 Completed Date of admission: 07/12/17 20:05 Primary care physician: Gurinder Méndez CNP Consults: 07/12/17 20:05 Consult to Cardiology [CONS] Routine Comment: Consulting Provider: Cardiology Denise Reason for Consult: NSTEMI, called by ER Call Completed: No 07/13/17 08:24 Consult to Cardiac Rehabilitation-Phase1 [CONS] Routine Comment: Reason for Consult: NSTEMI Call Completed: No - Patient Status Disposition: Home, Self-Care Condition: Good Overall status at discharge: patient is back to baseline - Discharge Instructions Follow Up With: Gurinder Méndez CNP [Primary Care Provider] - Additional Instructions: Follow-up with primary care physician within the next 7 days. Follow-up with cardiology within the next 2 weeks. Continue Brilinta, metoprolol, aspirin and Lipitor. Increase dose of losartan to 50 mg twice a day - Diet and Activity Activity: increase activity as tolerated Diet: low fat, low cholesterol Hospital course: Mr. Cavanaugh is a 72 year old male transferred from [place], with a past medical history of asthma, cancer (Prostate cancer, has seeds implanted), coronary artery disease (Status post stents), diabetes (Insulin-dependent), hyperlipidemia, hypertension, myocardial infarction, other (Abnormal stress test in 2016, depression, chronically elevated troponins, asthma), started complaining of chest pressure, midsternal about 4 days prior to admission since Sunday. Got worse at 2 PM and lasted for an hour and a half with no radiation 8 out of 10 in intensity that improved with nitroglycerin. The Patient went to the ER and his troponin was 0.8, chest x-ray was unremarkable, hemoglobin 18.5 hematocrit 51.6 INR was 1 aPTT 47.7 glucose 339 sodium 132 chloride 96 calcium 11. Cardiology was consulted by the ER, Dr. Beverly recommended admission and to start heparin drip. The patient's blood pressure was very elevated at 209/ 93. Troponin peaked at 3.03. Triglycerides 191, cholesterol 189, LDL 114 VLDL 38, HDL 37. Status post cardiac catheterization with mid LAD drug-eluting stent and OM 2 ANNA MARIE Continue aspirin, Brilinta, metoprolol, atorvastatin Echocardiogram shows an ejection fraction of 60% with mild concentric left ventricular hypertrophy, mild diastolic dysfunction The patient was offered the option to stay another day due to inclement weather but he refers to be discharged if he is able to find a ride home. - Time Spent with Patient Total time spent providing and/or coordinating discharge services: Greater than 30 minutes (40 min) - Constitutional Vitals: Temp Pulse Resp BP Pulse Ox 97.8 F 69 21 159/74 93 07/14/17 08:06 07/14/17 08:06 07/14/17 08:06 07/14/17 08:06 07/14/17 08:35 General appearance: Present: A&O X 3, morbidly obese - Head Head exam: Present: atraumatic, normocephalic - Eye Eye exam: Present: PERRL, conjuntiva pink, sclera anicteric Pupils: Present: PERRL - Neck Neck exam general surgery: Present: supple, trachea midline. Absent: lymphadenopathy - Respiratory Respiratory exam: Present: CTAB. Absent: accessory muscle use, rales, rhonchi, wheezes - Cardiovascular Cardiovascular exam: Present: RRR, +S1, +S2. Absent: diastolic murmur, gallop, rubs, systolic murmur - GI/Abdominal GI/Abdominal exam: Present: normal bowel sounds, soft, no peritoneal signs. Absent: distended, tenderness - Extremities Exam Extremities exam: Present: warm, radial pulses palpable and symmetrical. Absent : calf tenderness, cyanotic, pedal edema Additional comments: Right radial area/wrist without signs of hematoma - Neurological Exam Neurological exam: Present: CN II-XII intact, oriented X3, no focal deficits. Absent: pronater drift, facial droop, speech deficit - Skin Skin exam: Present: dry, intact
--- NOTE | 2017-07-14 10:28 | Cardiology Progress Note ---
Date of Encounter: 07/14/17 Time of Encounter: 09:00 Assessment and Plan (1) NSTEMI (non-ST elevated myocardial infarction) Current Visit: Yes Status: Acute Per cardiology: -Peak troponin 3.03 with downward trend. Intermittent typical chest pain symptoms since Sunday. -No acute ischemic ECG changes noted. -LHC yesterday with ANNA MARIE placed to LAD and OM. -Denies chest pain. -On asa, brilnta, beta mirima, and statin. -Educated on importance of dual anti-platelet therapy uninterrupted for at least one year. States understanding. Brilinta assistance card given to patient. Patient educated to call if he has issues obtaining brilinta. -RIght radial access site without hematoma or ecchymosis. Right radial access site management eductaion reviewed with patient. States understanding. -TTE with LVEF 60%, no segmental wall motion abnormalities noted. -Cardiology will sign off and will follow in outpatient setting. -Follow up set. (2) Chest pain Current Visit: Yes Status: Resolved Per cardiology: -Patient reports has been chest pain free since after LHC> -Will follow in outpatient setting. Qualifiers: Chest pain type: chest pain due to myocardial ischemia Ischemic chest pain type: unstable angina pectoris Qualified Code(s): I20.0 - Unstable angina Discussion w patient/family: The assessment and plan as outlined above was discussed with the patient and/or family members who expressed understanding and agreement. All questions were answered. Thank you for involving us in the care of your patient. Please call with any questions. Discussed and reviewed with . Subjective Principal diagnosis: NSTEMI Interval history: Patient denies chest pain, states he feels much better. Denies issues uising right wrist. Objective Vital Signs, Last 4 Hours Temp Pulse Resp BP Pulse Ox 07/14/17 08:35 93 07/14/17 08:06 97.8 F 69 21 159/74 93 General: Conversant, No Apparent Distress HEENT: Atraumatic, Normocephaly, Mucus Membranes Moist Neck: No JVD, Normal carotid pulses Cardiac: Reg Rate and Rhythm, Normal S1 and S2, No Murmur Lungs: Normal Breath Sounds, No Wheeze, Rales, Rhonchi Neuro: Alert and responsive, No focal deficits noted Abdomen: Soft, Non-Tender Skin: No rashes noted on visualized skin, Other (Right radial access site without hematoma or ecchymosis. ) Musculoskeletal: No Chest Wall Tenderness Extremities: No Clubbing, No Cyanosis, No Edema, Normal Pulses Results 07/13/17 02:54 07/14/17 09:01 Lab Results Impressions Echocardiogram 07/13/17 20:05 Impressions: LVEF 60%. Normal LV chamber size and function. Mild concentric left ventricular hypertrophy. Mild left ventricular diastolic dysfunction. Right ventricle was not well visualized. Grossly, it is normal function. Unable to estimate RVSP due to lack of TR jet. No obvious significant valvular dysfunction. Left Ventricular Wall Motion: Rest Echo Findings All wall segments showed normal motion. Findings: Study Quality * Technically adequate exam. ECG Findings * Normal sinus rhythm. Left Ventricle * LVEF 60%. * Normal LV chamber size and function. * Mild concentric left ventricular hypertrophy. * Mild left ventricular diastolic dysfunction. Right Ventricle * Right ventricle was not well visualized. Grossly, it is normal function. Left Atrium * Grossly, moderately dilated left atrium. Right Atrium * Right atrium is not well visualized. Interatrial Septum * Interatrial septum not well evaluated. Aortic Valve * Aortic valve not well visualized. * No aortic regurgitation. * No aortic stenosis. Mitral Valve * Normal mitral valve structure and function. * No mitral regurgitation. * No mitral stenosis. Tricuspid Valve * Tricuspid valve not well visualized. * No tricuspid regurgitation. * Unable to estimate RVSP due to lack of TR jet. Pulmonic Valve * Pulmonic valve is not well visualized. * No pulmonic regurgitation. Aorta * Normally sized aortic root. Pericardium * The pericardium appears normal. IVC * Normal IVC dimensions and inspiratory collapse. Pulmonary Artery * Normal visualized portions of the main pulmonary artery. Active Medications Acetaminophen (Tylenol) 650 mg PO Q4HR PRN PRN Reason: fever and mild pain Stop: 01/11/18 20:11 Hydrocodone Bitart/Acetaminophen ([place] 10-325 Mg) 1 each PO Q6H PRN PRN Reason: moderate pain Stop: 01/11/18 20:13 Last Admin: 07/13/17 18:17 Dose: 1 each Albuterol/Ipratropium (Duoneb) 3 ml IH [id number] PRN; Protocol PRN Reason: Shortness Of Breath/Wheezing Stop: 01/11/18 20:11 Amlodipine Besylate (Norvasc) 10 mg PO DAILY ALFREDO PRN Reason: Protocol Stop: 01/11/18 20:16 Last Admin: 07/14/17 08:25 Dose: 10 mg Aspirin (Aspirin) 81 mg PO DAILY [facility] Stop: 01/12/18 09:01 Last Admin: 07/14/17 08:24 Dose: 81 mg Atorvastatin Calcium (Lipitor) 80 mg PO HS [facility] Stop: 01/11/18 21:01 Last Admin: 07/13/17 20:43 Dose: 80 mg Dextrose/Water (Dextrose 50% (Syg)) 25 ml IVP AD PRN PRN Reason: Hypoglycemia Stop: 01/11/18 20:13 Fluoxetine HCl (Prozac) 10 mg PO DAILY [facility] Stop: 01/12/18 09:01 Last Admin: 07/14/17 08:24 Dose: 10 mg Glucagon (Glucagen) 1 mg IM ONCE PRN PRN Reason: Hypoglycemia Stop: 01/11/18 20:13 Glucose (Gluctose) 15 gm PO ONCE PRN PRN Reason: Hypoglycemia Stop: 01/11/18 20:13 Glucose (Gluctose) 30 gm PO ONCE PRN PRN Reason: Hypoglycemia Stop: 01/11/18 20:13 Hydralazine HCl (Hydralazine) 20 mg IVP Q6HR PRN PRN Reason: Hypertension Stop: 01/11/18 20:11 Dextrose (Dextrose 5%) 1,000 mls @ 100 mls/hr IVC .Q10H PRN PRN Reason: HYPOGLYCEMIA Stop: 01/11/18 20:13 Insulin Detemir (Levemir) 30 unit SQ DAILY [facility] Stop: 01/13/18 09:01 Last Admin: 07/14/17 08:25 Dose: 30 unit Insulin Human Lispro (Humalog) 0 units SQ TIDAC [facility] PRN Reason: Protocol Stop: 01/11/18 20:16 Last Admin: 07/14/17 08:24 Dose: 14 units Insulin Human Lispro (Humalog) 0 units SQ HS [facility] PRN Reason: Protocol Stop: 01/11/18 21:01 Last Admin: 07/13/17 22:27 Dose: 8 units Isosorbide Mononitrate (Imdur) 60 mg PO DAILY [facility] Stop: 01/12/18 09:01 Last Admin: 07/14/17 08:24 Dose: 60 mg Losartan Potassium (Cozaar) 50 mg PO DAILY [facility] PRN Reason: Protocol Stop: 01/11/18 20:16 Last Admin: 07/14/17 08:24 Dose: 50 mg Metoprolol Tartrate (Lopressor) 25 mg PO BID [facility] Stop: 01/11/18 21:01 Last Admin: 07/14/17 08:25 Dose: 25 mg Montelukast Sodium (Singulair) 10 mg PO QPM [facility] Stop: 01/12/18 18:01 Last Admin: 07/13/17 18:17 Dose: 10 mg Morphine Sulfate (Morphine Sulfate) 4 mg IVP Q3H PRN PRN Reason: Severe Pain (7-10) Stop: 01/11/18 20:06 Naloxone HCl (Narcan) 0.4 mg IVP Q2MIN PRN PRN Reason: Opioid Reversal Stop: 01/11/18 20:06 Nitroglycerin (Nitroglycerin) 1 inch TP Q6HNTG [facility] Stop: 01/11/18 20:16 Last Admin: 07/14/17 06:09 Dose: Not Given Omeprazole (Prilosec) 40 mg PO DAILY@0630 [facility] PRN Reason: Protocol Stop: 01/12/18 06:31 Last Admin: 07/14/17 06:09 Dose: 40 mg Ondansetron HCl (Zofran) 4 mg IVP Q8HR PRN PRN Reason: Nausea And Vomiting Stop: 01/11/18 20:06 Ticagrelor (Brilinta) 90 mg PO BID [facility] Stop: 01/12/18 21:01 Last Admin: 07/14/17 08:24 Dose: 90 mg Laboratory Tests 07/14/17 09:01 Creatinine 1.01 - Imaging and Cardiology Chest Xray: report reviewed Echo: report reviewed Cardiac cath: report reviewed - EKG Interpretation EKG results cardiology: other (Telemetry reviewed with average HR previous 12 hours noted to be 57, sinus bradycardia. PVCs and PACs noted.) Consult Discharge Plan - Plan Instructions: Carvedilol (By mouth), Ticagrelor (By mouth), Chronic Hypertension (DC) Additional Instructions: Follow-up with primary care physician within the next 7 days. Follow-up with cardiology within the next 2 weeks. Continue Brilinta, metoprolol, aspirin and Lipitor. Increase dose of losartan to 50 mg twice a day Referrals: Gurinder Méndez, SARAH [Primary Care Provider] - Prescriptions: Atorvastatin [Lipitor] 80 mg PO HS #30 tablet Losartan [Cozaar] 50 mg PO BID #60 tablet Omeprazole [PriLOSEC] 40 mg PO DAILY@0630 #30 capsule. Ticagrelor [Brilinta] 90 mg PO BID #60 tablet
== END 2017-07-14 11:41 | disposition home or self-care (01) | DRG 247 ==
LOC: 2ANU → SUATTDRO 20:05
PROVIDERS: ADMIT Internal Medicine; ATTEND Internal Medicine